=== PATIENT | male | born 1940 | race Caucasian/White ===

== ENCOUNTER 2023-09-21 12:00 | Emergency (ER) | payer OTHER ==
[2023-09-21 12:52] VITALS: BP 146/87; PULSE 80; RESP 16; TEMP 98.6; BMI 33.9
== END 2023-09-21 14:48 | disposition home or self-care (01) ==
LOC: FER 12:00
DX: S09.90XA Unspecified injury of head, initial encounter (principal); W18.40XA Slipping, tripping and stumbling without falling, unspecified, initial encounter; W22.8XXA Striking against or struck by other objects, initial encounter
CPT/HCPCS: 70450-TC; 99284-25